=== PATIENT | male | born 1985 | race Caucasian/White ===

== ENCOUNTER 2016-10-15 10:08 | Emergency (ER) | payer SELFPAY ==
[~2016-10-15] VITALS: Ht 170.2 cm; Wt 88.9 kg
[~2016-10-15 10:08] MED LIST: HYDROCODON-ACE1 EAC7 PO; KEFLEX500 MG PO; NOHOMEMEDS
[2016-10-15 10:14] VITALS: BP 143/103
[2016-10-15] MEDS ORDERED: BACTROBAN OINTM22 GM TP (11:01)
== END 2016-10-15 11:23 | disposition home or self-care (01) ==
LOC: EME 10:08
DX: S30.861A Insect bite (nonvenomous) of abdominal wall, initial encounter (principal); W57.XXXA Bitten or stung by nonvenomous insect and other nonvenomous arthropods, initial encounter; F17.200 Nicotine dependence, unspecified, uncomplicated
CPT/HCPCS: 99281; 99283